=== PATIENT | female | born 1980 | race Caucasian/White ===

== ENCOUNTER → 2023-06-01 15:40 | Outpatient (REF) | payer OTHER, SELFPAY | LOC: WDC 15:40 | PROVIDERS: ATTENDING PHYSICIAN Nurse Practitioner | DX: Z12.31 Encounter for screening mammogram for malignant neoplasm of breast (principal) | CPT/HCPCS: 77063; 77067 ==

== ENCOUNTER → 2023-10-01 09:02 | Outpatient (REF) | payer OTHER, SELFPAY | LOC: WDC 09:02 | PROVIDERS: ATTENDING PHYSICIAN Nurse Practitioner | DX: R92.2 Inconclusive mammogram (principal) | CPT/HCPCS: 76641 ==

== ENCOUNTER 2023-11-22 16:48 | Emergency (ER) | payer OTHER, SELFPAY ==
[2023-11-22 16:53] VITALS: BP 129/87
[2023-11-22 19:20] VITALS: BP 127/79
[2023-11-22 20:21] VITALS: BMI 30.8
--- NOTE | 2023-11-22 20:25 | EDRN ---
Pt says her doctor started her on 0.25mg ozempic because she is in the medically obese category. Pt took her first dose Thursday night around 1999 and by 0 pt was vomiting. Pt says she has been in bed all weekend and has vomited at least 70
times. Pt complains of pain in abdomen radiating into her lower back. Last BM was Thursday morning. Pt says she has not urinated since last night because she has not been able to keep anything down and has been vomiting so often. Pt says she took
ozempic in the spring for 3 weeks and did not like the way it made her feel (nauseous) so she stopped taking it at that time. Pt concerned she is dehydrated and says she feels weak. Vomit is now bile. Last vomited 10 minutes ago.
--- NOTE | 2023-11-22 20:30 | ED.GENMED ---
History of Present Illness
General
Chief Complaint: Medication Reaction
Source: patient
Exam Limitations: none
Time Seen by Provider: 11/22/23 20:10
History of Present Illness
History of Present Illness:
43-year-old female presents complaining of abdominal pain nausea vomiting since 2 days ago when she started Ozempic for the first time. She had her symptoms starting soon after she gave herself medicine. She had Ozempic several months ago for 3
weeks and developed minor reactions but never this severe. She denies fevers chest pain. She denies diarrhea. She cannot keep anything down. No other complaints
Past History
Past History
ED Past Medical History: None
ED Past Surgical History: None
Phy Exam
Physical Exam
Physical Exam:
General: Well-appearing female no acute respiratory distress
HEENT: Normocephalic atraumatic mucosa dry
Heart: Regular rate and rhythm no murmurs
Lungs: Clear no wheeze
Abdomen soft mildly diffusely tender no guarding or rebound
Extremities: No cyanosis
Course
Orders/Labs/Results
Orders:
Orders
11/22/23 20:29
0.9% Sodium Chloride 1000 ml [Nss] 1,000 ml IV BOLUS
Ondansetron Injectable [Zofran] 4 mg IV NOW STA
Test Result ONCE
11/22/23 20:41
Complete Blood Count/With Diff Urgent
Comprehensive Metabolic Panel Urgent
HCG, Serum Qualitative Screen Urgent
Lipase Urgent
11/22/23 22:26
0.9% Sodium Chloride 250 ml [Nss] 250 ml IV BOLUS
Ondansetron Injectable [Zofran] 4 mg IV NOW STA
Abnormal Lab Results
11/22/23
20:41
Lymphocytes % 20.4 L %
(20.5-51.1)
BUN 18 H mg/dl
(7-17)
11/22/23 20:41
11/22/23 20:41
Vital Signs
Initial and Last Documented VS:
Initial Vital Signs
Temp Pulse Resp BP Pulse Ox
97.8 F 97 16 129/87 98
11/22/23 16:53 11/22/23 16:53 11/22/23 16:53 11/22/23 16:53 11/22/23 16:53
Last Documented Vital Signs
Temp Pulse Resp BP Pulse Ox
97.8 F 71 18 122/80 97
11/22/23 16:53 11/22/23 22:28 11/22/23 22:28 11/22/23 22:28 11/22/23 22:28
MDM/Problems Addressed
Differential Diagnosis Includes:
Nausea vomiting abdominal pain since initiation of Ozempic. Question viral illness versus medication reaction versus appendicitis. Clinical exam and history not consistent with acute appendicitis as pain has been intermittent. Considered imaging
but not indicated at this time. Will treat symptomatically with hydration and nausea control.
*Critical Care Note
Total Time (30-74mins, 75-104mins- exclusive of procedures): Not Applicable
Update Note
Update Note:
Patient feeling better. She is tolerating oral fluids. I suspect symptoms are from adverse reaction from Ozempic. Zofran was prescribed if needed for nausea
ED Attending Note
-
Portions of this chart may have been created with voice recognition software.� Occasional wrong word or��sound alike� substitutions may have occurred due to the inherent limitations of voice recognition software.
Discharge Plan
Departure
Patient Disposition: Home (Routine Discharge)
Date of Disposition: 11/22/23
Time of Disposition: 23:44
Patient with high blood pressure during this ER visit?: No
Discharge Problem:
Nausea & vomiting
Prescriptions:
New
ondansetron 4 mg tablet,disintegrating
4 mg PO Q8H PRN (Reason: nausea and vomiting) Qty: 10 0RF
No Action
sertraline 25 mg Tablet
25 mg PO DAILY
Referrals:
Savannah Whitfield CRNP [Family Provider] -
Activity Restrictions/Additional Instructions:
Drink plenty clear liquids. Advance to bland diet as tolerated. Use Zofran if needed for nausea
Interventions
Interventions:
*Risk Screen - Suicide Last Done: 11/22/23 20:21
*General Assessment Last Done: 11/22/23 20:21
*Neglect/Abuse Screening Last Done: 11/22/23 20:21
*ED COVID-19 Vaccine History Last Done: 11/22/23 20:21
ED-Skin Assessment Last Done: 11/22/23 20:21
ED- Pulmonary Assessment Last Done: 11/22/23 20:21
ED-EENT Assessment Last Done: 11/22/23 23:42
Discharge Date and Time
Print Language: GREENLANDIC
[2023-11-22 20:32] VITALS: BP 124/88
[2023-11-22] MEDS: ZOFRAN 4 MG IV ×2 (20:43→22:31)
[2023-11-22] MEDS: NSS 1000 IV (20:43)
[2023-11-22 20:54] LABS: % Basophils 0.5 % (0-2); % Eosinophils 1.1 % (0-6); % Immature Granulocytes 0.3 % (0-0.5); % Lymphocytes 20.4 % (20.5-51.1); % Monocytes 6.7 % (1.7-9.3); Absolute Eosinophils 0.1 10^3/uL (0-0.7); Absolute Lymphocytes 1.5 10^3/uL (1.2-3.4); Absolute Monocytes 0.5 10^3/uL (0.1-0.6); Absolute Neutrophils 5.3 10^3/uL (1.4-6.5); Hematocrit 39.7 % (37.0-47.0); Hemoglobin 13.7 g/dL (12.0-16.0); Mean Corp Hgb Conc. 34.5 g/dL (33.0-37.0); Mean Corpuscular Hgb 28.3 pg (27.0-31.0); Mean Platelet Volume 9.7 fL (7.4-10.4); Nucleated Red Blood Cells % 0 %; Platelet Count 313 10^3/uL (130-400); Red Blood Cell Count 4.84 10^6/uL (4.20-5.40); White Blood Cell Count 7.5 10^3/uL (4.8-10.8)
[2023-11-22 21:07] LABS: HCG, Serum Qualitative Screen Negative
[2023-11-22 21:11] LABS: ALT (SGPT) 20 U/L (0-35); AST (SGOT) 30 U/L (14-36); Albumin 4.7 g/dl (3.5-5.0); Alkaline Phosphatase 75 U/L (38-126); Blood Urea Nitrogen 18 mg/dl (7-17); Carbon Dioxide 24 mmol/L (22-30); Chloride 101 mmol/L (98-107); Estimated Creatinine Clearance 123 ml/min; Glucose 87 mg/dl (70-99); Lipase 28 U/L (23-300); Sodium 139 mmol/L (135-145); Total Bilirubin 0.7 mg/dl (0.2-1.3); Total Protein 7.7 g/dl (6.3-8.2); eGFR > 60.00
[2023-11-22 22:28] VITALS: BP 122/80
[2023-11-22] MEDS: NSS 250 IV (22:31)
== END 2023-11-22 23:58 | disposition home or self-care (01) ==
LOC: EMR 16:48
PROVIDERS: Physician Assistant; EMERGENCY PHYSICIAN Emergency Medicine; FAMILY PHYSICIAN Nurse Practitioner
DX: R11.2 Nausea with vomiting, unspecified (principal)
CPT/HCPCS: 99284; 96374; 96361; 96376; 80053; 83690; 84703; 85025

== ENCOUNTER → 2024-06-30 07:44 | Outpatient (REF) | payer OTHER, SELFPAY | LOC: WDC 07:44 | PROVIDERS: ATTENDING PHYSICIAN Student in an Organized Health Care Education/Training Program | DX: Z12.31 Encounter for screening mammogram for malignant neoplasm of breast (principal) | CPT/HCPCS: 77063; 77067 ==

== ENCOUNTER → 2024-07-18 08:42 | Outpatient (REF) | payer OTHER, SELFPAY | LOC: WDC 08:42 | PROVIDERS: ATTENDING PHYSICIAN Student in an Organized Health Care Education/Training Program | DX: R92.8 Other abnormal and inconclusive findings on diagnostic imaging of breast (principal) | CPT/HCPCS: 76642 ==